=== PATIENT | male | born 1990 | race Caucasian/White ===

== ENCOUNTER 2024-05-25 14:20 | Inpatient (IN) | payer OTHER ==
[2024-05-25 15:16] VITALS: BMI 18.9
[2024-05-25] MEDS ORDERED: NICOTINE POLACRILEX 2 MG GUM BUC PRN (16:31)
[2024-05-25] MEDS ORDERED: MAGNESIUM HYDROX 2400MG/30ML ORAL SUSPENSION 30 ML CUP PO PRN (16:31)
[2024-05-25] MEDS ORDERED: NICOTINE POLACRILEX 2 MG LOZENGE BC PRN (16:31)
[2024-05-25] MEDS ORDERED: DICYCLOMINE HCL 10 MG CAPSULE PO PRN (16:31)
[2024-05-25] MEDS ORDERED: P-EPHED 60MG/TRIPROLIDI 2.5MG TABLET PO PRN (16:31)
[2024-05-25] MEDS ORDERED: NALOXONE HCL 0.4 MG/ML VIAL IM PRN (16:31)
[2024-05-25] MEDS ORDERED: IBUPROFEN 600 MG TABLET (FP) PO PRN (16:31)
[2024-05-25] MEDS ORDERED: guaiFENesin 600 MG TABLET.ER (FP) PO PRN (16:31)
[2024-05-25] MEDS ORDERED: LOPERAMIDE HCL 2 MG CAPSULE PO PRN (16:31)
[2024-05-25] MEDS ORDERED: POLYETHYLENE GLYCOL (HEALTHYLAX) 3350 17 GM PACKET PO PRN (16:31)
[2024-05-25] MEDS ORDERED: BISMUTH SUBSALICYLATE 524 MG/30 ML PO PRN (16:31)
[2024-05-25] MEDS ORDERED: BENZONATATE 200 MG CAPSULE PO PRN (16:31)
[2024-05-25] MEDS ORDERED: BENZOCAINE/MENTHOL (CHLORASEPTIC ) LOZENGE MM PRN (16:31)
[2024-05-25] MEDS ORDERED: IBUPROFEN 400 MG TABLET (FP) PO PRN (16:31)
[2024-05-25] MEDS ORDERED: NALOXONE (NARCAN) HCL 4 MG/0.1 ML SPRAY NS PRN (16:31)
[2024-05-25] MEDS ORDERED: ONDANSETRON *ODT* 4 MG TABLET SL PRN (16:31)
[2024-05-25] MEDS: methaDONE HCL 10 MG TABLET (FOR DETOX USE ONLY) PO ONE (18:02)
[2024-05-25] MEDS: diazePAM 5 MG TABLET PO PRN (18:03)
[2024-05-25] MEDS: ACETAMINOPHEN 325 MG TABLET (FP) PO PRN (20:21)
[2024-05-25] MEDS: METHOCARBAMOL 500 MG TABLET PO PRN (22:16)
[2024-05-25] MEDS: hydrOXYzine PAMOATE 25 MG CAPSULE (FP) PO PRN (22:16)
[2024-05-25] MEDS: MELATONIN 5 MG TABLETS PO SCH (22:16)
[2024-05-25] MEDS: THIAMINE 100 MG TABLET PO SCH (22:16)
[2024-05-26] MEDS: MAG HYDROX/AL HYDROX/SIMETH 30 ML UNIT-DOSE CUP PO PRN (03:53)
[2024-05-26] MEDS: PRENATAL VITAMINS W/ FOLIC ACID TABLET (FP) PO SCH (09:47)
[2024-05-26 11:50] LABS: HEMATOCRIT 40.2 % (35.4-49); HEMOGLOBIN 13.7 GM/dL (11.7-16.9); MCH 29.8 pg (25.7-33.7); MCHC 33.9 g/dl (32.0-35.9); MEAN CELL VOLUME 87.9 fl (80-96); MEAN PLT VOLUME 10.1 fl (7.5-11.1); PLATELET COUNT 180 10^3/uL (134-434); RBC 4.58 M/mm3 (4.00-5.60); RDW 13.6 % (11.9-15.9); WHITE BLOOD COUNT 6.4 K/mm3 (4.0-10.0)
[2024-05-26 14:01] LABS: CHLORIDE 106 mmol/L (98-107); POTASSIUM 3.8 mmol/L (3.5-5.1); SODIUM 141 mmol/L (136-145)
[2024-05-26 14:06] LABS: GLUCOSE,RANDOM 88 mg/dL (74-106)
[2024-05-26 14:08] LABS: CALCIUM 8.4 mg/dL (8.5-10.1)
[2024-05-26 14:09] LABS: ALBUMIN 2.9 g/dl (3.4-5.0); BLOOD UREA NITROGEN 12.4 mg/dL (7-18); SGOT/AST 12 U/L (15-37); SGPT/ALT 45 U/L (13-61)
[2024-05-26 14:10] LABS: BILIRUBIN,TOTAL 0.3 mg/dL (0.2-1)
[2024-05-26 14:11] LABS: TOT PROT 4.9 g/dl (6.4-8.2)
[2024-05-26 14:12] LABS: ALK PHOS 53 U/L (45-117)
[2024-05-26 14:13] LABS: CO2 30 mmol/L (21-32); CREATININE 0.7 mg/dL (0.55-1.3)
[2024-05-26] MEDS: cloNIDine HCL 0.1 MG TABLET PO PRN (22:29)
[2024-05-27] MEDS: methaDONE HCL 10 MG TABLET (FOR DETOX USE ONLY) PO ONE (10:28)
[2024-05-28 06:13] VITALS: PULSE 86
[2024-05-28 08:55] VITALS: BP 130/62; RESP 17; TEMP 97.7
[2024-05-29] MEDS ORDERED: methaDONE HCL 10 MG TABLET (FOR DETOX USE ONLY) PO ONE (10:00)
== END 2024-05-28 09:25 | disposition home or self-care (01) | DRG 774 ==
LOC: YASAS 14:20 → Y3N 17:13
PROVIDERS: ADMIT Allergy & Immunology; ATTEND Surgery
PROC: HZ2ZZZZ Detoxification Services for Substance Abuse Treatment (ICD-10-PCS; principal; 2024-05-25)
DX: F10.230 Alcohol dependence with withdrawal, uncomplicated (principal); F14.20 Cocaine dependence, uncomplicated; F12.20 Cannabis dependence, uncomplicated; F17.290 Nicotine dependence, other tobacco product, uncomplicated
CPT/HCPCS: 36415; 80053; 80305; 80307; 85027; 86780; 93005; 93010